=== PATIENT | female | born 1960 | race Caucasian/White ===

== ENCOUNTER 2017-07-05 21:00 | Inpatient (IN) | payer OTHER ==
[2017-07-05 21:36] LABS: ADD MAN DIFF? NO
[2017-07-05 21:42] LABS: BASO % 0 % (0-3); EOS % 0 % (0-3); HEMATOCRIT 35.5 % (36.0-47.0); HEMOGLOBIN 12.2 g/dL (12.0-15.5); LYMPH # 1.1 x10^3/uL (1.0-4.8); LYMPH % 17 % (24-48); MEAN CORPUSCULAR HEMOGLOBIN 37 pg (25-35); MEAN CORPUSCULAR HGB CONC 34 g/dL (31-37); MEAN CORPUSCULAR VOLUME 108 fL (79-100); MONO # 0.4 x10^3/uL (0.0-1.1); MONO % 6 % (0-9); NEUT # 4.8 x10^3uL (1.8-7.7); NEUT % 77 % (31-73); PLATELET COUNT 141 x10^3/uL (140-400); RED CELL DISTRIBUTION WIDTH 14.9 % (11.5-14.5); WHITE BLOOD COUNT 6.2 x10^3/uL (4.0-11.0)
[2017-07-05 21:45] LABS: BILIRUBIN,URINE SMALL (NEG); CLARITY,URINE CLOUDY; COLOR,URINE AMBER; GLUCOSE,URINE NEGATIVE (NEG); NITRITE,URINE NEGATIVE (NEG); PH,URINE 5.5; PROTEIN,URINE 100 mg/dL (NEG-TRACE)
[2017-07-05 21:51] LABS: AMORPHOUS SEDIMENT,UR PRESENT /HPF; BACTERIA,URINE MANY /HPF (0-FEW); HYALINE CASTS, URINE MODERATE /HPF; RBC,URINE OCC /HPF (0-2); SQUAMOUS EPITHELIAL CELL,UR FEW /LPF
[2017-07-05 21:52] LABS: BARBITURATES NEG (NEG); BENZODIAZEPINES NEG (NEG); CANNABINOIDS NEG (NEG); COCAINE POS (NEG); METHADONE NEG (NEG); OPIATES POS (NEG); PHENCYCLIDINE NEG (NEG)
[2017-07-05 21:53] LABS: AMPHETAMINE/METHAMPHETAMINE POS (NEG); ETHANOL, URINE NEG (NEG)
[2017-07-05 21:54] LABS: ACETAMIN 29.89 mcg/ml (10-30); ETHANOL < 10 mg/dL (0-10); PARTIAL THROMBOPLASTIN TIME 34 SEC (24-38)
[2017-07-05 21:59] LABS: LACTIC ACID 1.2 mmol/L (0.4-2.0)
[2017-07-05 22:02] LABS: NT-PRO BNP 2902 pg/mL (0-124)
[2017-07-05 22:02] LABS: INFLUENZA A PATIENT NEGATIVE (NEGATIVE); INFLUENZA B PATIENT NEGATIVE (NEGATIVE); OBC FLU VALID
[2017-07-05 22:03] LABS: TROPONINI < 0.017 ng/mL (0.000-0.055)
[2017-07-05 22:03] LABS: ANION GAP 12 (6-14); BLOOD UREA NITROGEN 21 mg/dL (7-20); BUN/CREATININE RATIO 12 (6-20); CALCIUM 8.4 mg/dL (8.5-10.1); CARBON DIOXIDE 24 mmol/L (21-32); CHLORIDE 106 mmol/L (98-107); CREATININE 1.7 mg/dL (0.6-1.0); GFR 31.2; GLUCOSE 113 mg/dL (70-99); POTASSIUM 3.5 mmol/L (3.5-5.1); SODIUM 142 mmol/L (136-145)
[2017-07-05 22:04] LABS: THYROID STIM HORMONE (TSH) 0.322 uIU/mL (0.358-3.74)
[2017-07-05 22:05] LABS: PROTHROMBIN TIME PATIENT 12.5 SEC (11.7-14.0)
[2017-07-05 22:08] LABS: ALBUMIN 2.1 g/dL (3.4-5.0); ALBUMIN/GLOBULIN RATIO 0.6 (1.0-1.7); ALK PHOS 81 U/L (46-116); ALT (SGPT) 10 U/L (14-59); AST (SGOT) 30 U/L (15-37); CREATINE KINASE 54 U/L (26-192); LIPASE 59 U/L (73-393); MAGNESIUM 2.6 mg/dL (1.8-2.4); TOTAL BILIRUBIN 0.2 mg/dL (0.2-1.0); TOTAL PROTEIN 5.7 g/dL (6.4-8.2)
[2017-07-05] MEDS ORDERED: ONDANSETRON PF 4 MG/2 ML VIAL. IV (22:15)
[2017-07-05] MEDS ORDERED: fentaNYL PF VIAL 100 MCG/2 ML VIAL IV (22:15)
[2017-07-05 22:17] LABS: BASE EXCESS COOX -3 mmol/L (-3-3); CARBON MONOXIDE 2.3 % (0.0-1.9); HCO3 COOX 25 mmol/L (21-28); METHEMOGLOBIN 0.3 % (0.0-1.9); OXYHEMOGLOBIN 86.9 %; PCO2 COOX 58 mmHg (35-46); PH COOX 7.25 (7.35-7.45); PO2 COOX 58 mmHg (75-108); SAT O2 COOX 89 % (92-99)
[2017-07-05 22:18] LABS: FIO2 COOX 32
[2017-07-05] MEDS: methylPREDNISolone SOD SUCC PF 125 MG/2 ML VIAL. IV (22:20)
[2017-07-05] MEDS: IV NORMAL SALINE 1000ML BAG 1,000 ML IV (22:20)
[2017-07-05] MEDS: IPRATRPIUM/ALBUTEROL 0.5/2.5MG 3 ML NEBU. NEB (22:22)
[2017-07-06] MEDS: PIPERACILLIN/TAZOBACTAM 3.375 GM in IV NORMAL SALINE 50ML 50 ML IV (00:11)
[2017-07-06] MEDS: VANCOMYCIN 2 GM in IV DEXTROSE 5 %-0.45 % NACL 500 ML IV ×2 (00:12→21:06)
[2017-07-06] MEDS: VANCOMYCIN PER PHARMACY MC ×2 (02:23→17:22)
[2017-07-06 07:14] LABS: BASO % 0 % (0-3); EOS % 0 % (0-3); HEMATOCRIT 34.1 % (36.0-47.0); HEMOGLOBIN 11.5 g/dL (12.0-15.5); LYMPH # 0.3 x10^3/uL (1.0-4.8); LYMPH % 9 % (24-48); MEAN CORPUSCULAR HEMOGLOBIN 36 pg (25-35); MEAN CORPUSCULAR HGB CONC 34 g/dL (31-37); MEAN CORPUSCULAR VOLUME 108 fL (79-100); MONO # 0.2 x10^3/uL (0.0-1.1); MONO % 4 % (0-9); NEUT % 86 % (31-73); PLATELET COUNT 115 x10^3/uL (140-400); RED BLOOD COUNT 3.16 x10^6/uL (3.50-5.40); RED CELL DISTRIBUTION WIDTH 14.8 % (11.5-14.5); WHITE BLOOD COUNT 3.5 x10^3/uL (4.0-11.0)
[2017-07-06 07:15] LABS: ADD MAN DIFF? YES
[2017-07-06 08:13] LABS: ANION GAP 9 (6-14); BLOOD UREA NITROGEN 23 mg/dL (7-20); CALCIUM 7.8 mg/dL (8.5-10.1); CARBON DIOXIDE 25 mmol/L (21-32); CHLORIDE 106 mmol/L (98-107); CREATININE 1.7 mg/dL (0.6-1.0); GFR 31.2; GLUCOSE 138 mg/dL (70-99); POTASSIUM 3.6 mmol/L (3.5-5.1); SODIUM 140 mmol/L (136-145)
[2017-07-06] MEDS ORDERED: guaiFENesin DM 200MG/20MG 10 ML SYRUP PO (08:30)
[2017-07-06] MEDS: LOSARTAN POTASSIUM 50 MG TABLET. PO (08:41)
[2017-07-06] MEDS: LEVOTHYROXINE 100 MCG TABLET PO (08:41)
[2017-07-06] MEDS: predniSONE 10 MG TABLET PO (08:41)
[2017-07-06] MEDS: LACTOBACILLUS RHAMNOSUS GG 1 CAPSULE. PO ×2 (08:41→21:02)
[2017-07-06] MEDS ORDERED: ONDANSETRON PF 4 MG/2 ML VIAL. IV (08:45)
[2017-07-06] MEDS: FUROSEMIDE 40 MG TABLET. PO (08:51)
[2017-07-06] MEDS: IPRATRPIUM/ALBUTEROL 0.5/2.5MG 3 ML NEBU. NEB ×4 (08:57→19:56)
[2017-07-06] MEDS: BUDESONIDE 0.5 MG/2 ML NEBU. NEB ×2 (09:00→19:56)
[2017-07-06] MEDS ORDERED: NON FORMULARY ITEM (Ipratropium/Albuterol Sulfate (Combivent Respimat Inhal) 2 INH) IH (09:00)
[2017-07-06] MEDS ORDERED: NON FORMULARY ITEM (Budesonide/Formoterol Fumarate (Symbicort 160-4.5 Mcg Inhaler) 2 PUFF) IH (09:00)
[2017-07-06] MEDS: chlorproMAZINE 25 MG TABLET PO (09:24)
[2017-07-06 09:40] LABS: % BANDS 3 % (0-9); % LYMPHS 14 % (24-48); % MONOS 1 % (0-10); % SEGS 82 % (35-66); PLT ESTIMATE DECREASED (ADEQUATE)
[2017-07-06] MEDS ORDERED: PIP/TAZO PER PHARMACY MC (10:15)
[2017-07-06] MEDS: PIPERACILLIN/TAZOBACTAM 4.5 GM in IV NORMAL SALINE 100ML 100 ML IV ×3 (11:39→23:34)
[2017-07-06 12:43] LABS: BASE EXCESS ABG -4 mmol/L (-3-3); HCO3 ABG 24 mmol/L (21-28); PCO2 ABG 55 mmHg (35-46); PH ABG 7.25 (7.35-7.45); PO2 ABG 88 mmHg (75-108); SAT O2 ABG 96 % (92-99)
[2017-07-06] MEDS: IV 1/2 NORMAL SALINE 1,000 ML IV (12:57)
[2017-07-06] MEDS ORDERED: QUETIAPINE FUMARATE PO (21:00)
[2017-07-06] MEDS ORDERED: LURASIDONE 40 MG TABLET. PO (21:00)
[2017-07-06] MEDS ORDERED: QUEtiapine 300 MG TAB.ER.24H. PO (21:00)
[2017-07-06] MEDS ORDERED: QUEtiapine 50 MG TAB.ER.24H. PO (21:00)
[2017-07-06] MEDS: NYSTATIN TOPICAL POWDER 15GM BOTTLE. TP (21:03)
[2017-07-06] MEDS: HYDROcodone/APAP 7.5/325MG 1 TAB TABLET PO (21:04)
[2017-07-07] MEDS: PIPERACILLIN/TAZOBACTAM 4.5 GM in IV NORMAL SALINE 100ML 100 ML IV ×3 (05:53→17:54)
[2017-07-07] MEDS: LEVOTHYROXINE 100 MCG TABLET PO (05:54)
[2017-07-07] MEDS: IPRATRPIUM/ALBUTEROL 0.5/2.5MG 3 ML NEBU. NEB ×4 (07:39→19:27)
[2017-07-07] MEDS: BUDESONIDE 0.5 MG/2 ML NEBU. NEB ×2 (07:39→19:28)
[2017-07-07 08:08] LABS: BASE EXCESS ABG -4 mmol/L (-3-3); HCO3 ABG 23 mmol/L (21-28); PCO2 ABG 45 mmHg (35-46); PH ABG 7.32 (7.35-7.45); PO2 ABG 54 mmHg (75-108); SAT O2 ABG 88 % (92-99)
[2017-07-07] MEDS: NYSTATIN TOPICAL POWDER 15GM BOTTLE. TP ×2 (09:00→21:00)
[2017-07-07] MEDS: FUROSEMIDE 40 MG TABLET. PO (09:00)
[2017-07-07] MEDS: LACTOBACILLUS RHAMNOSUS GG 1 CAPSULE. PO ×2 (09:00→22:19)
[2017-07-07] MEDS: predniSONE 10 MG TABLET PO (09:01)
[2017-07-07] MEDS: LOSARTAN POTASSIUM 50 MG TABLET. PO (09:02)
[2017-07-07] MEDS: methylPREDNISolone SOD SUCC PF 40 MG/ML VIAL. IV ×2 (11:41→22:19)
[2017-07-07] MEDS: QUEtiapine 300 MG TAB.ER.24H. PO (13:44)
[2017-07-07] MEDS: LURASIDONE 40 MG TABLET. PO (13:44)
[2017-07-07] MEDS: ALPRAZolam 0.25 MG TABLET PO (15:05)
[2017-07-07 23:01] LABS: VANC TR 13.6 mcg/mL (10.0-20.0)
[2017-07-08] MEDS: PIPERACILLIN/TAZOBACTAM 4.5 GM in IV NORMAL SALINE 100ML 100 ML IV ×4 (01:03→17:52)
[2017-07-08] MEDS: VANCOMYCIN 2 GM in IV DEXTROSE 5 %-0.45 % NACL 500 ML IV ×2 (01:04→21:45)
[2017-07-08] MEDS: VANCOMYCIN PER PHARMACY MC (01:15)
[2017-07-08] MEDS: IPRATRPIUM/ALBUTEROL 0.5/2.5MG 3 ML NEBU. NEB ×7 (04:00→23:33)
[2017-07-08] MEDS: methylPREDNISolone SOD SUCC PF 40 MG/ML VIAL. IV ×3 (04:27→21:30)
[2017-07-08 05:50] LABS: ADD MAN DIFF? NO
[2017-07-08 06:26] LABS: ANION GAP 8 (6-14); BLOOD UREA NITROGEN 22 mg/dL (7-20); CALCIUM 8.3 mg/dL (8.5-10.1); CARBON DIOXIDE 28 mmol/L (21-32); CHLORIDE 106 mmol/L (98-107); CREATININE 1.2 mg/dL (0.6-1.0); GFR 46.6; GLUCOSE 84 mg/dL (70-99); POTASSIUM 3.3 mmol/L (3.5-5.1); SODIUM 142 mmol/L (136-145)
[2017-07-08 06:50] LABS: BASO % 0 % (0-3); EOS % 0 % (0-3); HEMOGLOBIN 11.8 g/dL (12.0-15.5); LYMPH # 1.2 x10^3/uL (1.0-4.8); LYMPH % 46 % (24-48); MEAN CORPUSCULAR HEMOGLOBIN 35 pg (25-35); MEAN CORPUSCULAR HGB CONC 33 g/dL (31-37); MEAN CORPUSCULAR VOLUME 108 fL (79-100); MONO # 0.4 x10^3/uL (0.0-1.1); MONO % 15 % (0-9); NEUT % 39 % (31-73); PLATELET COUNT 107 x10^3/uL (140-400); RED BLOOD COUNT 3.34 x10^6/uL (3.50-5.40); WHITE BLOOD COUNT 2.6 x10^3/uL (4.0-11.0)
[2017-07-08] MEDS: BUDESONIDE 0.5 MG/2 ML NEBU. NEB ×2 (07:43→19:36)
[2017-07-08] MEDS: FUROSEMIDE 40 MG TABLET. PO (08:47)
[2017-07-08] MEDS: LACTOBACILLUS RHAMNOSUS GG 1 CAPSULE. PO ×2 (08:47→21:29)
[2017-07-08] MEDS: QUEtiapine 300 MG TAB.ER.24H. PO (08:47)
[2017-07-08] MEDS: LOSARTAN POTASSIUM 50 MG TABLET. PO (08:47)
[2017-07-08] MEDS: LURASIDONE 40 MG TABLET. PO (08:47)
[2017-07-08] MEDS: NYSTATIN TOPICAL POWDER 15GM BOTTLE. TP ×2 (11:43→21:00)
[2017-07-08 12:40] LABS: PLT ESTIMATE DECREASED (ADEQUATE)
[2017-07-08] MEDS: traZODone 50 MG TABLET. PO (21:29)
[2017-07-08] MEDS: ALPRAZolam 0.25 MG TABLET PO (21:29)
[2017-07-09] MEDS: PIPERACILLIN/TAZOBACTAM 4.5 GM in IV NORMAL SALINE 100ML 100 ML IV ×3 (00:30→12:27)
[2017-07-09] MEDS: IPRATRPIUM/ALBUTEROL 0.5/2.5MG 3 ML NEBU. NEB ×4 (04:00→15:14)
[2017-07-09] MEDS: methylPREDNISolone SOD SUCC PF 40 MG/ML VIAL. IV ×2 (05:17→13:48)
[2017-07-09] MEDS: BUDESONIDE 0.5 MG/2 ML NEBU. NEB (08:00)
[2017-07-09] MEDS: FUROSEMIDE 40 MG TABLET. PO (08:54)
[2017-07-09] MEDS: QUEtiapine 300 MG TAB.ER.24H. PO (08:54)
[2017-07-09] MEDS: LACTOBACILLUS RHAMNOSUS GG 1 CAPSULE. PO (08:54)
[2017-07-09] MEDS: NYSTATIN TOPICAL POWDER 15GM BOTTLE. TP (08:54)
[2017-07-09] MEDS: LOSARTAN POTASSIUM 50 MG TABLET. PO (08:54)
[2017-07-09] MEDS: LURASIDONE 40 MG TABLET. PO (08:54)
[2017-07-09] MEDS: POTASSIUM CHLORIDE 20 MEQ TABLET.ER. PO (12:27)
[2017-07-09] MEDS: VANCOMYCIN PER PHARMACY MC (13:31)
== END 2017-07-09 16:58 | disposition home or self-care (01) | DRG 871 ==
LOC: ER 21:00 → 5 NORTH 22:09
PROC: 5A09357 Assistance with Respiratory Ventilation, Less than 24 Consecutive Hours, Continuous Positive Airway Pressure (ICD-10-PCS; principal; 2017-07-06)
PROC: 5A09357 Assistance with Respiratory Ventilation, Less than 24 Consecutive Hours, Continuous Positive Airway Pressure (ICD-10-PCS; 2017-07-06)
PROC: 5A09357 Assistance with Respiratory Ventilation, Less than 24 Consecutive Hours, Continuous Positive Airway Pressure (ICD-10-PCS; 2017-07-06)
PROC: 5A09357 Assistance with Respiratory Ventilation, Less than 24 Consecutive Hours, Continuous Positive Airway Pressure (ICD-10-PCS; 2017-07-06)
DX: A41.9 Sepsis, unspecified organism (principal); J18.9 Pneumonia, unspecified organism; N17.0 Acute kidney failure with tubular necrosis; J96.21 Acute and chronic respiratory failure with hypoxia; G92 Toxic encephalopathy; D61.818 Other pancytopenia; J96.22 Acute and chronic respiratory failure with hypercapnia; Z68.41 Body mass index [BMI] 40.0-44.9, adult; J44.0 Chronic obstructive pulmonary disease with (acute) lower respiratory infection; J44.1 Chronic obstructive pulmonary disease with (acute) exacerbation; N17.9 Acute kidney failure, unspecified; N39.0 Urinary tract infection, site not specified; E03.9 Hypothyroidism, unspecified; E66.9 Obesity, unspecified; E78.00 Pure hypercholesterolemia, unspecified; F14.10 Cocaine abuse, uncomplicated; F17.210 Nicotine dependence, cigarettes, uncomplicated; F25.9 Schizoaffective disorder, unspecified; I10 Essential (primary) hypertension; K21.9 Gastro-esophageal reflux disease without esophagitis; Z82.49 Family history of ischemic heart disease and other diseases of the circulatory system; F32.9 Major depressive disorder, single episode, unspecified; F41.9 Anxiety disorder, unspecified; M19.90 Unspecified osteoarthritis, unspecified site; Z90.49 Acquired absence of other specified parts of digestive tract; Z98.51 Tubal ligation status; Z71.6 Tobacco abuse counseling
CPT/HCPCS: 36415; 36600; 70450; 71045; 71250; 80048; 80053; 80202; 80307; 80329; 81001; 82550; 82805; 83605; 83690; 83735; 83880; 84443; 84484; 85007; 85025; 85610; 85730; 87040; 87086; 87186; 87804; 87804-59; 93005; 94640; 94660; 94760; 96374; 97116-GP; 97127; 97162-GP; 97166-GO; 97530-GP; 97535-GO; 99291; 99291-25; G0480; J1956; J2543; J2920; J2930; J3370; J7030; J7512; J7620; J7626; Q0161